=== PATIENT | male | born 2005 | race Caucasian/White ===

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

== ENCOUNTER 2024-03-12 14:59 | Emergency (ER) | payer OTHER ==
[~2024-03-12] VITALS: Ht 185.4 cm; Wt 113.4 kg
[~2024-03-12 14:59] MED LIST: NALO4SPR NS
[2024-03-12 15:16] VITALS: BP 134/83; PULSE 59; RESP 18; TEMP 98.3; O2SAT 97
[2024-03-12] MEDS: IBUPROFEN 400 MG TAB PO ONE (15:53)
[2024-03-12] MEDS ORDERED: CEPH-588 PO (16:15)
[2024-03-12] MEDS ORDERED: ACET-10509 PO (16:15)
[2024-03-12] MEDS ORDERED: IBUP-2213 PO (16:15)
[2024-03-12] MEDS: ACETAMINOPHEN EXTRA STRENGTH 500 MG TAB PO ONE (16:41)
[2024-03-12] MEDS ORDERED: BACITRACIN OINT 500 UNITS/GM PKT TP ONE (17:08)
[2024-03-12] MEDS: BACITRACIN OINT 500 UNITS/GM PKT TP ONE (17:16)
[2024-03-13] MEDS ORDERED: IBUP-2213 PO (12:04)
[2024-03-13] MEDS ORDERED: CEPH-588 PO (12:04)
[2024-03-13] MEDS ORDERED: ACET-10509 PO (12:04)
== END 2024-03-12 17:29 | disposition home or self-care (01) ==
LOC: MED 14:59
DX: S62.637B Displaced fracture of distal phalanx of left little finger, initial encounter for open fracture (principal); S80.212A Abrasion, left knee, initial encounter; Z79.899 Other long term (current) drug therapy; W34.09XA Accidental discharge from other specified firearms, initial encounter; Y93.89 Activity, other specified; Y92.511 Restaurant or cafe as the place of occurrence of the external cause; Y99.8 Other external cause status
CPT/HCPCS: 73140; 73562; 90471; 90715; 99284